=== PATIENT | female | born 1965 | race Caucasian/White ===

== ENCOUNTER → 2020-03-20 | Outpatient (CLI) | payer BC, OTHER ==
[~2020-03-20] MED LIST: ALLEGRA ALLERG180 MG PO; FLONASE 0.05%50 MCG NARES; FLOVENT DISKU100 MCG INH; IRBESARTAN-HCT1 EACH PO; LIPITOR40 MG PO; PROAIR DIGIHAL90 MCG INH; PROTONIX40 M2 PO; TOPAMAX100 MG PO; TYLENOL EXTRA500 MG PO
== END ==
LOC: LAB 11:26
PROVIDERS: ATTEND Orthopaedic Surgery Sports Medicine
DX: Z01.812 Encounter for preprocedural laboratory examination (principal); Z20.828 Contact with and (suspected) exposure to other viral communicable diseases

== ENCOUNTER 2020-03-25 06:06 | Day surgery (SDC) | payer BC, OTHER ==
[~2020-03-25] VITALS: Ht 160 cm; Wt 83.9 kg
[2020-03-25 07:50] VITALS: BP 128/82
[2020-03-25 09:34] VITALS: BP 128/82
--- NOTE | 2020-03-28 10:44 | O ---
[address] [address] OPERATIVE REPORT Name: FRANCA RAY Room #: DEP [facility].#: [id number] Admission: 03/25/20 Attend Phys: Adam Sepulveda MD Discharge: 03/25/20 Date of : 63 Report #: [id number] THIS REPORT FOR: cc: Almita Pena, Almita Lemus,Adam Jaime MD ~ CC: Adam Pena DATE OF SERVICE: 03/25/2020 SURGEON: Adam Sepulveda MD STOVE CLEANER: Carla Leal. INDICATION FOR STOVE CLEANER: Extremity positioning, retraction, assistance with repair and tenodesis. PREOPERATIVE DIAGNOSES: 1. Left shoulder pain. 2. Left shoulder impingement syndrome. 3. Left shoulder acromioclavicular joint arthrosis. 4. Left shoulder biceps tendinitis. 5. Left shoulder osteoarthritis. POSTOPERATIVE DIAGNOSES: 1. Left shoulder pain. 2. Left shoulder impingement syndrome. 3. Left shoulder acromioclavicular joint arthrosis. 4. Left shoulder biceps tendinitis. 5. Left shoulder osteoarthritis. PROCEDURES: 1. Left shoulder arthroscopic subacromial decompression. 2. Left shoulder arthroscopic distal clavicle excision. 3. Left shoulder extensive arthroscopic debridement. 4. Left shoulder open subpectoral biceps tenodesis. COMPLICATIONS: None. DRAINS: None. SPECIMENS: None. ANESTHESIA: General with regional. [address] [address] OPERATIVE REPORT Name: FRANCA RAY Room #: DEP [facility]#: [id number] Admission: 03/25/20 Attend Phys: Adam Sepulveda MD Discharge: 03/25/20 Date of : 63 Report #: [id number] FINDINGS: 1. 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 2. Intact rotator cuff including supraspinatus, infraspinatus and subscapularis. 3. Biceps tendinitis with inflammation at the superior labral insertion. Biceps tenodesis with [place] and Nephew cortical button with suture tape. 4. Extensive subacromial bursitis and adhesions treated with resection. HISTORY: The patient is a 55-year-old female with history of persistent progressive left shoulder pain throughout much of 2019. We tried extensive conservative measures with her including rest, activity modification, physical therapy, oral medicines, injections and modalities. Despite all this, she continued to have significant pain. We did an MRI, which showed that the rotator cuff was intact. She had a history of a significant case of calcific tendinitis in the right shoulder, but this was not the case in the left. She did have biceps tendinitis symptoms on exam as well as acromioclavicular joint arthrosis and impingement syndrome. We discussed surgical treatment and ultimately she wished to go forward in that direction. Risks, benefits, alternatives, and indication of surgery were discussed with her in detail. Risks include but not limited to pain, bleeding, infection, injury to nerves or blood vessels, persistent pain despite surgical intervention, failure of any repairs, progression of preexisting chondral injury, stiffness, need for further surgery as well as complications related to anesthesia up to and including . PROCEDURE IN DETAIL: After left upper extremity was correctly identified in the preoperative holding as operative extremity, the patient underwent regional nerve block. She was then taken to the operating room where general anesthesia was induced without complication. She was seated in the beach chair position, padded appropriately. Prophylactic antibiotics were administered at appropriate time. Left upper extremity was prepped and draped in standard sterile fashion. Timeout procedure performed. Standard posterior viewing portal was established. Diagnostic arthroscopy revealed the above findings. An anterior portal was established and a shaver was used to perform an extensive debridement in the intra-articular space working anteriorly, superiorly, inferiorly and posteriorly on the labrum and the synovium where there was significant synovitis, particularly superiorly and then the shaver was used to complete a chondroplasty of both the glenoid and the humerus. The rotator cuff was intact. There were some adhesions in the bicipital groove as the biceps entered the groove. The supraspinatus was intact as was the upper border of the subscapularis other than some very mild fraying less than 1-2% of the footprint size. The synovitis was a substantial at the superior labral insertion of the biceps tendon and there was erythema along the [address] [address] OPERATIVE REPORT Name: FRANCA RAY Room #: DEP [facility] [place]#: [id number] Admission: 03/25/20 Attend Phys: Adam Sepulveda MD Discharge: 03/25/20 Date of : 63 Report #: [id number] path of the tendon as well. A spinal needle was used to pin the biceps towards the intra-articular position and then a tenotomy was performed for later tenodesis. Scope was then placed in subacromial space and a thorough bursectomy was performed. The bursal tissue was quite thickened and they adhesed to the undersurface of the acromion and the deltoid. The bursectomy was carried around posteriorly and then laterally along the deltoid and then anteriorly, freeing up the adhesions to the coracoacromial ligament as well as the distal aspect of the clavicle and the acromioclavicular joint. A cutting block technique was then used to perform an acromioplasty. The bone quality was noted to be soft in this area and then the arthroscopic distal clavicle excision was performed with care taken to ensure resection of a centime of bone and resection of the bone without violating the superior and posterior capsules. After this was completed, the arthroscopic effusion was drained and the bony debris was lavaged out of the shoulder. A one-inch incision was made adjacent to the axillary fold. Dissection was taken down in a subpectoral fashion to the anterior aspect of the humerus. The biceps tendon was marked for its anatomic position and the spinal needle was removed and the biceps was delivered out of the wound and then the anterior humerus was prepared in the groove with a 4.5 mm drill hole unicortically and that bone was abraded for a fresh surface for healing and then a [place] and Nephew Endobutton was deployed in a unicortical fashion and the cinching suture technique was used to perform biceps tenodesis with suture tape and then the tendon was sewn back upon itself for reinforcement. The suture tail and the biceps tendon stump were resected. Wound was copiously irrigated. The skin was closed with 2-0 Vicryl followed by running subcuticular 3-0 Monocryl and Dermabond. The portal sites were closed with Monocryl. Sterile dressing was applied followed by a simple sling. She will be allowed active range of motion of the shoulder and elbow. She has a 1-pound lifting restriction for 6 weeks and will prevent against a rapid load of the biceps with the sling for safety purposes during the 6 weeks. <ELECTRONICALLY SIGNED> By: Adam Sepulveda MD 03/28/20 [id number] Adam Sepulveda MD /nt
== END 2020-03-25 10:37 | disposition home or self-care (01) ==
LOC: OR 06:06 → TBA 06:07 → OR 10:37
PROVIDERS: ATTEND Orthopaedic Surgery Sports Medicine
DX: M25.512 Pain in left shoulder (principal); M19.012 Primary osteoarthritis, left shoulder; M75.42 Impingement syndrome of left shoulder; M75.22 Bicipital tendinitis, left shoulder; I10 Essential (primary) hypertension; E78.00 Pure hypercholesterolemia, unspecified; G43.909 Migraine, unspecified, not intractable, without status migrainosus; K21.9 Gastro-esophageal reflux disease without esophagitis; J45.909 Unspecified asthma, uncomplicated; Z98.890 Other specified postprocedural states; Z79.899 Other long term (current) drug therapy; Z90.710 Acquired absence of both cervix and uterus; Z90.49 Acquired absence of other specified parts of digestive tract; Z87.442 Personal history of urinary calculi; Z86.2 Personal history of diseases of the blood and blood-forming organs and certain disorders involving the immune mechanism; Z88.2 Allergy status to sulfonamides
CPT/HCPCS: 50010; 50101; 50172; 50386; 50417; 50733; 54118; 56524; 56525; 56526; 56527; 56617; 57103; 58140; 58365; 62110; 62900; 64043; 65060; 70005